=== PATIENT | female | born 1950 | race Asian ===

== ENCOUNTER 2016-12-07 19:06 | Emergency (ER) | payer OTHER ==
[~2016-12-07] VITALS: Ht 149.9 cm; Wt 60.8 kg
[2016-12-07] MEDS ORDERED: PRINIVIL10 MG PO (19:15)
[2016-12-07] MEDS ORDERED: HUMALOG MIX SC (19:16)
[2016-12-07 20:09] VITALS: BP 174/90; TEMP 97.9
== END 2016-12-07 20:13 | disposition home or self-care (01) ==
LOC: ED 19:06
DX: S50.861A Insect bite (nonvenomous) of right forearm, initial encounter (principal); W57.XXXA Bitten or stung by nonvenomous insect and other nonvenomous arthropods, initial encounter; Y93.89 Activity, other specified; Y92.89 Other specified places as the place of occurrence of the external cause; Y99.8 Other external cause status; R21 Rash and other nonspecific skin eruption
CPT/HCPCS: 99282; Q0177